=== PATIENT | female | born 1960 | race Caucasian/White ===

== ENCOUNTER → 2017-07-20 | Outpatient (CLI) | payer BC | END | disposition home or self-care (01) | LOC: RAH 14:06 | PROVIDERS: ATTEND Family Medicine | DX: M48.061 Spinal stenosis, lumbar region without neurogenic claudication (principal) | CPT/HCPCS: 72148 ==

== ENCOUNTER → 2018-09-20 | Outpatient (CLI) | payer BC | END | disposition home or self-care (01) | LOC: RAH 14:45 | PROVIDERS: ATTEND Physical Medicine & Rehabilitation | DX: M47.816 Spondylosis without myelopathy or radiculopathy, lumbar region (principal); M48.061 Spinal stenosis, lumbar region without neurogenic claudication; M71.38 Other bursal cyst, other site | CPT/HCPCS: 72148 ==

== ENCOUNTER → 2018-12-15 | Outpatient (CLI) | payer BC | END | disposition home or self-care (01) | LOC: RAH 13:30 | PROVIDERS: ATTEND Family Medicine | DX: Z12.31 Encounter for screening mammogram for malignant neoplasm of breast (principal) | CPT/HCPCS: 77067 ==

== ENCOUNTER → 2021-11-06 | Outpatient (CLI) | payer BC | END | disposition home or self-care (01) | LOC: RAH 13:46 | PROVIDERS: ATTEND Family Medicine | DX: N64.4 Mastodynia (principal); R92.8 Other abnormal and inconclusive findings on diagnostic imaging of breast | CPT/HCPCS: 77066 ==

== ENCOUNTER → 2022-11-09 | Outpatient (CLI) | payer BC | END | disposition home or self-care (01) | LOC: RAH 10:14 | PROVIDERS: ATTEND Family Medicine | DX: N63.11 Unspecified lump in the right breast, upper outer quadrant (principal); N64.4 Mastodynia; R92.2 Inconclusive mammogram | CPT/HCPCS: 76641; 77066 ==

== ENCOUNTER → 2022-12-06 | Outpatient (CLI) | payer BC ==
[2022-12-06 08:48] LABS: INR < 0.93 (0.85-1.15); PROTHROMBIN TIME 10.8 SEC (9.6-11.6)
[2022-12-06 08:50] LABS: PARTIAL THROMBOPLASTIN TIME 33.5 SEC (26.3-35.5)
== END | disposition home or self-care (01) ==
LOC: RAH 08:10
PROVIDERS: ATTEND Family Medicine
DX: C50.411 Malignant neoplasm of upper-outer quadrant of right female breast (principal); F13.20 Sedative, hypnotic or anxiolytic dependence, uncomplicated; F41.9 Anxiety disorder, unspecified; J06.9 Acute upper respiratory infection, unspecified; F32.A Depression, unspecified; F32.1 Major depressive disorder, single episode, moderate; Z79.01 Long term (current) use of anticoagulants; Z90.710 Acquired absence of both cervix and uterus; Z98.890 Other specified postprocedural states; Z87.891 Personal history of nicotine dependence; Z82.49 Family history of ischemic heart disease and other diseases of the circulatory system
CPT/HCPCS: 19083; 85610; 85730; 36415; 88305; A4215 ×2; A4648

== ENCOUNTER → 2024-06-14 | Outpatient (CLI) | payer BC ==
[~2024-06-14] MED LIST: GADOTERATE MEGLUMINE 10 MMOL/20 ML VIAL IV ONE
--- NOTE | 2024-06-14 16:38 | HMCIMG ---
MR SPINAL CANAL, CERV W/WO CON HISTORY: Radiculopathy COMPARISON: None TECHNIQUE: MRI of the cervical spine was performed utilizing multiple pulse sequences in axial, coronal and sagittal plane. Patient was given 70 cc of contrast. through intravenous route. FINDINGS: No abnormal signal intensity is seen of the visualized bony structure. No loss of vertebral height is seen. There is straightening of normal lordotic cervical curvature which may be related to muscle spasm or positioning. Degenerative disc signals are present at all cervical spine levels. Cerebellar tonsils are in normal position. Abnormal signal intensity is seen throughout the cervical cord at C4, C5, C6 and C7 levels may be related to myelopathy versus myelitis but other possibility not excluded. At the C3-4 level, there is spondylotic disc causing anterior CSF space effacement with bilateral lateral recess stenosis and bilateral neural foraminal stenosis. The central canal measures approximately 5.8 mm in its anterior posterior dimension. At the C4-5 level, there is spondylotic disc with central disc herniation causing anterior CSF space effacement with bilateral lateral recess stenosis and bilateral neural foraminal stenosis. The central canal measures approximately 4.5 mm in its anterior posterior dimension. At the C5-6 level, there is spondylotic disc causing anterior CSF space effacement with bilateral lateral recess stenosis and bilateral neural foraminal stenosis. The central canal measures approximately 3.6 mm in its anterior posterior dimension. At the C6-7 level, there is spondylotic disc causing anterior CSF space effacement with bilateral lateral recess stenosis and bilateral neural foraminal stenosis. The central canal measures approximately 4.7 mm in its anterior posterior dimension. IMPRESSION: 1. DJD. Cervical spine spondylosis and central canal narrowing. Abnormal signal intensity is seen within cervical cord C4, C5, C6 and C7 levels may be related to myelomalacia versus cord contusion versus myelitis. Other possibilities cannot be excluded. No abnormal enhancement is seen at this time.
== END | disposition home or self-care (01) ==
LOC: RAH 14:04
PROVIDERS: ATTEND Internal Medicine Hematology & Oncology
DX: M47.22 Other spondylosis with radiculopathy, cervical region (principal); M48.02 Spinal stenosis, cervical region; C77.3 Secondary and unspecified malignant neoplasm of axilla and upper limb lymph nodes; C50.811 Malignant neoplasm of overlapping sites of right female breast
CPT/HCPCS: 72156; A9575

== ENCOUNTER 2024-07-10 12:37 | Inpatient (IN) | payer BC ==
[~2024-07-10] VITALS: Ht 172.7 cm; Wt 86.6 kg
[2024-07-10 13:07] LABS: BASOPHILS # (AUTO) 0.02 K/uL (0.00-0.20); BASOPHILS % (AUTO) 0.4 % (0.0-5.0); EOSINOPHILS # (AUTO) 0.05 K/uL (0.00-0.70); HEMATOCRIT 35.6 % (36-48); IMMATURE GRANULOCYTE ABSOLUTE 0.02 K/uL (0-1); LYMPHOCYTES # (AUTO) 0.7 K/uL (1.0-4.8); LYMPHOCYTES % (AUTO) 13.9 % (21.0-51.0); MEAN CORPUSCULAR HEMOGLOBIN 31.8 pg (27.0-33.0); MEAN CORPUSCULAR HGB CONC 32.9 g/dL (32.0-36.0); MEAN CORPUSCULAR VOLUME 96.7 fL (79-99); MONOCYTES # (AUTO) 0.5 K/uL (0.1-1.0); MONOCYTES % (AUTO) 10.5 % (3.0-13.0); NEUTROPHILS # (AUTO) 3.7 K/uL (1.8-7.7); NEUTROPHILS % (AUTO) 73.8 % (40.0-77.0); PLATELET COUNT (AUTO) 213 K/uL (130-400); RED BLOOD CELL COUNT(AUTO) 3.68 MIL/uL (4.00-5.50); RED CELL DISTRIBUTION WIDTH 12.4 % (11.0-15.5)
--- NOTE | 2024-07-10 13:12 | ERN ---
ED Note History of Present Illness Stated Complaint: RT HAND SWELLING AND PAIN Chief Complaint: Hand Problem/Injury Time Seen by MD: 12:40 Time Seen by Midlevel: 12:40 Dictation: 63-year-old female presents to the ED for evaluation of right hand pain and swelling she was had with a past five days. Patient was born possible insect bite on . Patient reports she was started with draining this morning. Denies fear, and she was pain does report history of breast cancer with mastectomy of the right and removal of lymph nodes last year. Patient was in remission at this time Allergies: Coded Allergies: ketorolac (Unverified Allergy, Unknown, 07/10/24) sulfamethoxazole (Unverified Allergy, Unknown, 07/10/24) trimethoprim (Unverified Allergy, Unknown, 07/10/24) Home Meds Reported Medications Albuterol Sulfate (Ventolin Hfa) 90 Mcg Hfa.aer.ad, 2 PUFF IH Q4HPRN PRN for wheezing for 30 Days, #18 GM 0 Refills 07/10/24 Oxycodone HCl/Acetaminophen (Endocet 5-325 Tablet) 5 Mg-325 Mg Tablet, 1 TAB PO Q4HPRN PRN for PAIN LEVEL 1 TO 5 for 30 Days, #90 TAB 0 Refills //25 Bisacodyl (Dulcolax) 5 Mg Tablet.dr, 10 MG PO HS, TAB 5/6/25 Loratadine (Claritin) 10 Mg Tab, 10 MG PO HS, TAB 5/6/25 Sennosides (Senokot) 8.6 Mg Tablet, 17.2 MG PO HS, TAB 5//25 Aspirin (Aspirin EC) 81 Mg Tablet.dr, 81 MG PO HS, TAB 5/6/25 Famotidine (Famotidine) 40 Mg Tablet, 40 MG PO HS, TAB 5/6/25 Alprazolam (Alprazolam) 1 Mg Tablet, 1 MG PO TIDP PRN for ANXIETY, TAB 5/6/25 Atorvastatin Calcium (LIPITOR) 10 Mg Tab, 10 MG PO HS, TAB 5/6/25 Citalopram Hydrobromide (Citalopram HBr) 40 Mg Tablet, 40 MG PO HS, TAB 5/6/25 Furosemide (Furosemide) 20 Mg Tablet, 20 MG PO HS, TAB 5/6/25 Hydrochlorothiazide (Hydrochlorothiazide) 12.5 Mg Tablet, 12.5 MG PO HS, TAB 07/10/24 Clopidogrel Bisulfate (Clopidogrel) 75 Mg Tablet, 75 MG PO HS, TAB 07/10/24 Pregabalin (Pregabalin) 75 Mg Capsule, 75 MG PO BID, CAP 07/10/24 Discontinued Reported Medications Bisacodyl (Bisacodyl) 5 Mg Tablet.dr, 5 MG PO HS, TAB 07/10/24 Past Medical History Past Medical History: Arthritis, CAD, Cancer Surgical History: Other Surgical History Other: RT MASECTOMY RN Note Reviewed/Agreed w/PFSH: Yes Review of System Dictation CONSTITUTIONAL: Negative except for HPI HEAD/FACE: Negative except for HPI EENT: Negative except for HPI RESPIRATORY: Negative except for HPI GASTROINTESTINAL/ABDOMINAL: Negative except for HPI GENITOURINARY: Negative except for HPI MUSCULOSKELETAL: Negative except for HPI INTEGUMENTARY: Negative except for HPI NEUROLOGICAL/PSYCH: Negative except for HPI HEMATOLOGIC/LYMPHATIC: Negative except for HPI All Systems Negative, Except as noted above. 13 point review of systems assessed and all negative except for above. Review of Systems: was completed Initial Vital Sign VS Vital Signs Date Time Temp Pulse Resp B/P (MAP) Pulse Ox O2 Delivery O2 Flow Rate FiO2 07/10/24 12:40 98.4 114 20 115/77 99 0 07/10/24 13:05 Room Air* 21 Physical Exam Dictation Vital Signs reviewed General Appearance: Alert, oriented x 3, no acute distress, well developed, nourished. Head and Face: non-traumatic. Eyes: PERRL, pink conjunctivas, eyelid no trauma, anterior chamber with arcus senilis. Ears: Pinnas intact and no signs of trauma or erythema ear canals clear and no discharge TM no erythema Nose: No discharge, no bleeding. Oropharynx: Mouth normal, tongue pink, pharynx clear,no erythema, tonsils no exudates, no abscesses noted, mucous membrane moist Neck: Supple, non-tender, no thyromegaly, no masses, no JVD, no bruits Breast:Deferred Chest:No tenderness, no crepitus, no paradoxical movement, no retractions Lungs:Clear, well-ventilated, symmetric, no rales, no wheezing, no rhonchi, no stridor, good breath sounds bilaterally Heart: Regular rate, regular rhythm, no murmur, no gallops Vascular: no peripheral edema, Abdomen: Soft, positive bowel sounds, nondistended, no guarding, nontender, no rebound, no masses no hepatomegaly, no splenomegaly, no Heaton's sign, no hernias. Rectal: Deferred Genital: Deferred Neurological: Normal speech, motor function intact, sensory function intact Musculoskeletal: Neck nontender, full range of motion, back nontender, full range of motion, Extremities: nontender, full range of motion Skin: Color pink, dry, no turgor, no rash, no lacerations, no abrasions, no contusions. large area of right hand with induration, fluctuance and surrounding erythema consistent with cellulitis Lymphatic: Deferred Results (Laboratory/Radiology) Laboratory/Radiology Labs Reviewed?: Yes ED Course ED Course 1351 Spoke with Monique Mayer, YAYA for Dr. Young who agrees with plan for admission Medical Decision Making MDM MDM: Differential diagnosis: Cellulitis, abscess, immunocompromise, osteomyelitis, insect bite Rationale: Tests considered and ordered secondary to shared decision making include: Previous outside records reviewed: Old ER visits. Risk of complication and/or morbidity or mortality of patient management: None Medications-Per medication reconciliation Need for hospitalization: Patient does meet criteria for hospitalization. Need for emergency major/minor surgery: No There are no social concerns with this patient. Prescription drug management Prescriptions will include symptomatic care Patient's prior external medical records from other ER visits were reviewed by me as indicated. Prior testing and results from previous visits were reviewed. Prior tests were taken into account with medical decision making and resource utilization, independent historian/historians were used to obtain complete medical history. I independently interpreted the test that were performed, results were reviewed by me and considered findings on radiology if ordered. Medical management and examination interpretation discussions were had by me with other qualified healthcare professionals as indicated for the patient's care. Patient is a vancomycin and Rocephin for infection. Blood cultures and wound culture was obtained prior. Patient will be admitted for IV antibiotics due to immunocompromise state previous breast cancer. DX & DISP Disposition: Inpatient Decision to Admit Date: July 10, 2024 Decision to Admit Time: 12:52 Departure Impression: Primary Impression: Cellulitis Condition: Stable Referrals: HUE MARROQUIN MD (PCP) I have reviewed the case, and I agree with, Diagnosis and Plan I performed a substantive portion of the visit. I have reviewed and personally made and approve the management plan that is documented in the notes by myself with YAYA/resident. I acknowledged full responsibility for the patient's management plan. 63-year-old female right-hand cellulitis possibly an insect bite. No sepsis. Possibly an abscess. Started on antibiotics in the ER. We will admit for surgical/orthopedic consultation. JUAN A APODACA July 10, 2024 13:12 RIGOBERTO SALAZAR DO July 16, 2024 07:48
[2024-07-10 13:16] LABS: CREATININE 1.1 mg/dL (0.5-1.0); POTASSIUM 3.4 mmol/L (3.5-5.1)
[2024-07-10 13:20] LABS: BILIRUBIN,TOTAL 0.3 mg/dL (0.2-1.0); TOTAL PROTEIN, SERUM 6.8 g/dL (6.0-8.3)
[2024-07-10] MEDS ORDERED: VANCOMYCIN HCL 1.5 GM/250 ML BAG IV ONE (13:30)
[2024-07-10] MEDS: ondanSETRON 4MG INJ IVP STA (13:37)
[2024-07-10] MEDS: cefTRIAXone 1G VIAL IVPB STA (13:38)
[2024-07-10] MEDS: morPHINE 2 MG SYG IVP STA (13:38)
[2024-07-10] MEDS ORDERED: LACTULOSE 20 GM/30 ML UDCUP PO PRN (14:00)
[2024-07-10] MEDS ORDERED: MAGNESIUM 2GM PREMIX 50ML 50 ML IV PRN (14:00)
[2024-07-10] MEDS ORDERED: PoTASSium chl 10% ELIXIR 20MEQ 20 MEQ/15 ML UDCUP PO PRN (14:00)
[2024-07-10] MEDS ORDERED: ondanSETRON 4MG INJ IVP PRN (14:00)
[2024-07-10] MEDS ORDERED: hydrALAZine 20MG/ML VIAL IV PRN (14:00)
[2024-07-10] MEDS ORDERED: PoTASSium chloRIDE 20MEQ/100ML 100 ML IV PRN (14:00)
[2024-07-10] MEDS ORDERED: acetaMINOPHEN 325 MG TAB PO PRN (14:00)
[2024-07-10] MEDS: 0.9%NACL 1000ML 1,000 ML IV ONE (14:03)
--- NOTE | 2024-07-10 14:05 | HP ---
[facility] HISTORY AND PHYSICAL Date of Service: July 10, 2024 Time of Service: 14:01 HISTORY OF PRESENT ILLNESS: [ ] Admission Date 07/10/2024 PCP: Dimitry Torres MD This is a 63-year-old female that presents in ED with chief complaints of right hand forearm swelling. Reports four days ago she was watering her plants and and she believes that she was bitten by a insect. Right away she started with fevers and chills for24 hours then subsided. She was concerned today given to having redness and severe pain to right hand up to her axillary region of her right arm and drainage from infected right hand. She denies any fevers in the past24 hours. Or chills. She decided to come to ED for further evaluation and treatment. she reports having pets at home ( dogs) all vaccinated and treated for fleas and ticks. She follows oncologists Dr Salas. Patient was seen in ED two patient is fully awake alert oriented x3. brother at bedside. Right hand swollen with erythema on top of hand and with large area with drainage. She reports redness was up to her forearm: Patient is able to move arm and fingers, pulse are present. REVIEW OF SYSTEMS A14 point ROS was obtained all relevant positive for documented otherwise ROS negative PAST MEDICAL HISTORY: [ ] CAD breast cancer PAST SURGICAL HISTORY: [ ] Right mastectomy with lymph node removal Cardiac stent x4 PAST SOCIAL HISTORY: [ ] Former smoker quit February 2024 Denies alcohol use. FAMILY HISTORY: [ ] Noncontributory Coded Allergies: ketorolac (Unverified Allergy, Unknown, 07/10/24) sulfamethoxazole (Unverified Allergy, Unknown, 07/10/24) trimethoprim (Unverified Allergy, Unknown, 07/10/24) PHYSICAL EXAM GENERAL APPEARANCE: The patient is awake, alert, and oriented, in no acute cardiopulmonary distress. NEUROLOGICAL: Cranial nerves II-XII grossly intact. Motor is 5/5 in bilateral upper and lower extremities proximal to distal. No sensory deficits. HEENT: Face is symmetric. Pupils are equal and reactive. Extraocular movements are intact. NECK: Supple. No JVD. No thyromegaly. No submental, submandibular, pre- /postauricular, occipital or supraclavicular lymphadenopathy. CHEST: Normal chest expansion. No Telemetry. LUNGS: Absence of any rales, rhonchi or any wheezing. CARDIOVASCULAR: Regular. S1 and S2 normal. No appreciable rubs, murmurs or gallops. ABDOMEN: Soft, nontender, and nondistended. There is no rebound, voluntary guarding, or rigidity. : Deferred. No Juarez. EXTREMITIES: Non-edematous and not cyanotic. No clubbing. Good capillary refill. right hand erythema and large area with drainage SKIN: No skin breakdown. Vital Sign (Last 24 Hours) 07/10/24 13:05 Temp 98.4 Pulse 92 Resp 15 B/P (MAP) 119/77 Pulse Ox 95 O2 Delivery Room Air* O2 Flow Rate 0 FiO2 21 LABS: Laboratory: Test 07/10/24 12:58 Range/Units White Blood Count 5.0 4.8-10.8 K/uL Red Blood Count 3.68 L 4.00-5.50 MIL/uL Hemoglobin 11.7 L 12.0-16.0 g/dL Hematocrit 35.6 L 36-48 % Mean Corpuscular Volume 96.7 79-99 fL Mean Corpuscular Hemoglobin 31.8 27.0-33.0 pg Mean Corpuscular Hemoglobin Concent 32.9 32.0-36.0 g/dL Red Cell Distribution Width 12.4 11.0-15.5 % Platelet Count 213 130-400 K/uL Mean Platelet Volume 9.0 7.5-10.5 fL Immature Granulocyte % (Auto) 0.4 0-1 % Neutrophils (%) (Auto) 73.8 40.0-77.0 % Lymphocytes (%) (Auto) 13.9 L 21.0-51.0 % Monocytes (%) (Auto) 10.5 3.0-13.0 % Eosinophils (%) (Auto) 1.0 0.0-8.0 % Basophils (%) (Auto) 0.4 0.0-5.0 % Neutrophils # (Auto) 3.7 1.8-7.7 K/uL Lymphocytes # (Auto) 0.7 L 1.0-4.8 K/uL Monocytes # (Auto) 0.5 0.1-1.0 K/uL Eosinophils # (Auto) 0.05 0.00-0.70 K/uL Basophils # (Auto) 0.02 0.00-0.20 K/uL Absolute Immature Granulocyte (auto 0.02 0-1 K/uL Nucleated Red Blood Cells 0.0 0.0-0.19 % Sodium Level 141 136-145 mmol/L Potassium Level 3.4 L 3.5-5.1 mmol/L Chloride Level 101 101-111 mmol/L Carbon Dioxide Level 35 H 21-32 mmol/L Blood Urea Nitrogen 12 7-18 mg/dL Creatinine 1.1 H 0.5-1.0 mg/dL Glomerular Filtration Rate Calc 56 >90 mL/min Random Glucose 96 70-105 mg/dL Lactic Acid Level 2.4 0.8-2.5 mmol/L Total Calcium 8.8 8.5-10.1 mg/dL Total Bilirubin 0.3 0.2-1.0 mg/dL Aspartate Amino Transf (AST/SGOT) 25 10-37 U/L Alanine Aminotransferase (ALT/SGPT) 29 12-78 U/L Alkaline Phosphatase 113 50-136 U/L Total Protein 6.8 6.0-8.3 g/dL Albumin 3.0 L 3.5-5.0 g/dL Current Medications Medications (Trade) Dose Ordered Sig/Cindy Route PRN Reason Start Time Stop Time Status Last Admin Dose Admin Ceftriaxone Sodium (ROCEphine 1G INJ) 1 gm ONCE STAT IVPB 07/10/24 13:07 07/10/24 13:09 DC 07/10/24 13:38 1 GM Morphine Sulfate (morPHINE 2MG SYG) 2 mg ONCE STAT IVP 07/10/24 13:28 07/10/24 13:30 DC 07/10/24 13:38 2 MG Ondansetron HCl (zoFRAN 4MG INJ) 4 mg ONCE STAT IVP 07/10/24 13:28 07/10/24 13:30 DC 07/10/24 13:37 4 MG DIAGNOSTICS / RADIOLOGY: [ ] ASSESSMENT: Right hand cellulitis with abscess POA right had soft tissue infection POA Electrolyte derangement Hypokalemia POA WM ATN POA Moderate protein calorie malnutrition POA PLAN: [ ] Admit: Medical-surgical floor condition: Fair Status: Full code IVF: NS at 75 mL/hour times one day. Consultants; ID for abt's stewardship, General surgeon Antibiotics: Cefepime1 g every 12 hours doxycycline 100 mg IV b.i.d. Tetanus IM ordered. Test:blood cultures, wound cultures gram stain xray right hand pending results. Procedure: possible I/D waiting for general surgeon Labs cbc, cmp, mag+ Replace electrolytes as needed as per protocol to keep potassium above 4.0 magnesium 2.0. Home medications pending to be reviewed by RN nurse. PRN: MEDICATIONS Tylenol 650 mg po every 4 hrs for fever Zofran 4 mg IV every 6 hrs for n/v Hydralazine 5 mg IV every 4 hrs systolic pressure > 160 bowel regiment: lactulose 20 gm PO BID PRN constipation Pain management: Tylenol No. 3 as needed for severe pain. Supportive measures: DVT ppx, GI ppx all questions answered time spent: > 35 min Supervising MD: Dr. Young c/d This document was generated in part using voice recognition software, occasional wrong word or sound alike substitutions may have occurred due to the inherent limitations of voice recognition software. Read the chart carefully and recog nize using context, where the substitutions have occurred. Although every effort was made to edit the content, steel crane operator and typing errors may occur ADVANCED CARE PLANNING 1. Which of the following were discussed? Hospice Care - Yes / No Therapeutic options - Yes / No Advance Directives - Yes / No Other discussions - 2. Discussed with who? 3. Voluntary nature of this service was explained to the patient? Yes / No 4. Amount of time spent - 5. Reviewed by Physician? (if this service was performed by NPP) Yes / No ATTESTATION BY PHYSICIAN I have seen and examined the patient. I reviewed the documentation, medical decision making, and treatment plan as noted by the mid-level provider above. I agree with the findings and plan of care. ART YOUNG MD, ELIZABETH NP July 10, 2024 14:05
[2024-07-10] MEDS ORDERED: acetaMINOPHEN WITH coDEINE 1 TAB TAB PO PRN (14:30)
[2024-07-10] MEDS: VANCOMYCIN 1.5 GM/250 ML BAG 250 ML IV ONE (14:48)
[2024-07-10] MEDS: 0.9%NACL 1000ML 1,000 ML IV SCH (14:48)
[2024-07-10] MEDS: teTANUS/diphthERIA TOXOID [ADULT] 0.5 ML VIAL IM ONE (14:53)
--- NOTE | 2024-07-10 15:13 | NUR ---
DCP: HOME Pt is under care of Dr Santana and MD Moon for her cancer. Pt states her last treatment was Dec 2023 and she is "cancer free". Pt lives with her Neil Christopher [phone] who is currently in [place]. Pt's brother Ede Daugherty [phone] lives near by and assists pt as needed. Pt states she is independent of all her ADLS, uses no DME or in home care services at this time. PCP is Yessy Moraes and uses [facility] for rx. Has ppt with Dr Santana tomorrow and MD Moon on 07/16.MONA Gill made aware of Dr Santana appt. Addendum: 07/10/24 at 1514 by IVAN PANTOJA SS Amended: Links added.
--- NOTE | 2024-07-10 15:58 | HMCIMG ---
Exam Type: HAND 3+VWS RT Clinical Information: abscess, cellulitis Comparison: None Findings: The bone examination is unremarkable. No fractures or dislocations are seen. No radiopaque foreign bodies are noted. Dorsal soft tissue swelling. IMPRESSION: Normal bony examination.
[2024-07-10] MEDS ORDERED: FAMO40TA7 PO (16:16)
[2024-07-10] MEDS ORDERED: CLOP75TA32 PO (16:16)
[2024-07-10] MEDS ORDERED: BISA-151 PO (16:16)
[2024-07-10] MEDS ORDERED: PREG75CA76 PO (16:16)
[2024-07-10] MEDS ORDERED: FURO20TA4 PO (16:16)
[2024-07-10] MEDS ORDERED: ALPR1TAB7 PO (16:16)
[2024-07-10] MEDS ORDERED: CITA-108 PO (16:16)
[2024-07-10] MEDS ORDERED: HYDR12.54 PO (16:16)
[2024-07-10] MEDS ORDERED: ATOR10 PO (16:16)
[2024-07-10] MEDS ORDERED: ASPI-1443 PO (16:25)
[2024-07-10] MEDS ORDERED: LORA10TA7 PO (16:25)
[2024-07-10] MEDS ORDERED: SENN8.6T90 PO (16:25)
[2024-07-10] MEDS ORDERED: BISA-72 PO (16:25)
--- NOTE | 2024-07-10 16:25 | NUR ---
MED REC PATIENT STATES SHE TAKES ALL HER HOME MEDS AT NIGHT BEFORE BED, ONLY ONE SHE TAKES TWICE A DAY IS THE PREGABLIN
[2024-07-10] MEDS: DOXYCYCLINE 100MG+NS 250ML 250 ML IV SCH (17:41)
--- NOTE | 2024-07-10 18:33 | NUR ---
CALLED AND SPOKE TO DR. CHO OVER PHONE IN REGARDS TO NEW CONSULT, STATED "I WILL SEE PATIENT TOMORROW"
--- NOTE | 2024-07-10 19:37 | NUR ---
PT HAS RESTRICTED RIGHT ARM S/P MASTECTOMY
[2024-07-10 19:45] LABS: APPEARANCE,URINE CLEAR (CLEAR); BILIRUBIN,URINE NEGATIVE (NEGATIVE); COLOR,URINE LIGHT-YELLOW (YELLOW); GLUCOSE, URINE (UA) NEGATIVE (NEGATIVE); KETONES,URINE NEGATIVE (NEGATIVE); LEUKOCYTE ESTERASE ,URINE 25 Leu/uL (NEGATIVE); NITRATE,URINE NEGATIVE (NEGATIVE); OCCULT BLOOD,URINE NEGATIVE (NEGATIVE); PROTEIN,URINE NEGATIVE (NEGATIVE); UROBILINOGEN,URINE 0.2 mg/dL (0.2-1.0)
[2024-07-10 19:49] LABS: MUCUS,URINE RARE LPF (None Seen); SQUAMOUS EPITHELIAL CELL,UR RARE /HPF (0-2)
[2024-07-10] MEDS: FAMOTIDINE 20MG VIAL IV SCH (20:00)
[2024-07-10 22:00] VITALS: BP 134/79; PULSE 94; RESP 20; TEMP 97.9
[2024-07-10] MEDS ORDERED: ALBU18HF7 IH (22:45)
[2024-07-10] MEDS ORDERED: OXYC-26 PO (22:45)
[2024-07-11] MEDS: ceFEPime HCL 1 GM VIAL IVPB SCH (00:57)
[2024-07-11 03:54] VITALS: BP 101/59; PULSE 72; RESP 19; TEMP 97.8
[2024-07-11 05:34] LABS: BASOPHILS # (AUTO) 0.02 K/uL (0.00-0.20); BASOPHILS % (AUTO) 0.6 % (0.0-5.0); EOSINOPHILS % (AUTO) 3.2 % (0.0-8.0); HEMATOCRIT 31.5 % (36-48); IMMATURE GRANULOCYTE ABSOLUTE 0.02 K/uL (0-1); LYMPHOCYTES # (AUTO) 0.6 K/uL (1.0-4.8); LYMPHOCYTES % (AUTO) 19.1 % (21.0-51.0); MEAN CORPUSCULAR HEMOGLOBIN 32.1 pg (27.0-33.0); MEAN CORPUSCULAR HGB CONC 32.4 g/dL (32.0-36.0); MEAN CORPUSCULAR VOLUME 99.1 fL (79-99); MONOCYTES # (AUTO) 0.4 K/uL (0.1-1.0); MONOCYTES % (AUTO) 11.5 % (3.0-13.0); PLATELET COUNT (AUTO) 194 K/uL (130-400); RED BLOOD CELL COUNT(AUTO) 3.18 MIL/uL (4.00-5.50); RED CELL DISTRIBUTION WIDTH 12.3 % (11.0-15.5); WHITE BLOOD COUNT (AUTO) 3.1 K/uL (4.8-10.8)
[2024-07-11] MEDS: DOXYCYCLINE 100MG+NS 250ML 250 ML IV SCH (05:50)
[2024-07-11 06:21] LABS: ALBUMIN 2.3 g/dL (3.5-5.0); BILIRUBIN,TOTAL 0.3 mg/dL (0.2-1.0); CREATININE 0.9 mg/dL (0.5-1.0); MAGNESIUM 2.2 mg/dL (1.80-2.40); POTASSIUM 3.3 mmol/L (3.5-5.1); TOTAL PROTEIN, SERUM 5.7 g/dL (6.0-8.3)
[2024-07-11 08:00] VITALS: BP 98/58; PULSE 86; RESP 18; TEMP 97.6; O2SAT 95
--- NOTE | 2024-07-11 11:08 | PN ---
[facility] PROGRESS NOTE Date of Service: July 11, 2024 Time of Service: 10:57 SUBJECTIVE: [ ] Admission Date 07/10/2024 PCP: Dimitry Torres MD This is a 63-year-old female that presents in ED with chief complaints of right hand forearm swelling. Reports four days ago she was watering her plants and and she believes that she was bitten by a insect. Right away she started with fevers and chills for24 hours then subsided. She was concerned today given to having redness and severe pain to right hand up to her axillary region of her right arm and drainage from infected right hand. She denies any fevers in the past24 hours. Or chills. She decided to come to ED for further evaluation and treatment. she reports having pets at home ( dogs) all vaccinated and treated for fleas and ticks. She follows oncologists Dr Salas cancer free; right breast cancer: mastectomy and lymph removal. 07/11/24 patient is lying in bed no fevers reported overnight. Patient had continues to be swollen with redness tender to touch. We will waiting for surgeon for possible I and D. ID on board continue with broad-spectrum antibiotics. Denied chest pain or shortness for breath. REVIEW OF SYSTEMS A14 point ROS was obtained all relevant positive for documented otherwise ROS negative PHYSICAL EXAM GENERAL APPEARANCE: The patient is awake, alert, and oriented, in no acute cardiopulmonary distress. NEUROLOGICAL: Cranial nerves II-XII grossly intact. Motor is 5/5 in bilateral upper and lower extremities proximal to distal. No sensory deficits. HEENT: Face is symmetric. Pupils are equal and reactive. Extraocular movements are intact. NECK: Supple. No JVD. No thyromegaly. No submental, submandibular, pre- /postauricular, occipital or supraclavicular lymphadenopathy. CHEST: Normal chest expansion. No Telemetry. LUNGS: Absence of any rales, rhonchi or any wheezing. CARDIOVASCULAR: Regular. S1 and S2 normal. No appreciable rubs, murmurs or gallops. ABDOMEN: Soft, nontender, and nondistended. There is no rebound, voluntary guarding, or rigidity. : Deferred. No Juarez. EXTREMITIES: Non-edematous and not cyanotic. No clubbing. Good capillary refill. right hand erythema and large area with drainage SKIN: No skin breakdown. Vital Signs (last 8hr) Date Time Temp Pulse Resp B/P (MAP) Pulse Ox O2 Delivery O2 Flow Rate FiO2 07/11/24 08:00 97.5 86 18 98/58 95 Room Air 07/11/24 03:54 97.9 72 19 101/59 97 Room Air 21 LABS: Laboratory: Test 07/11/24 04:53 07/10/24 19:24 07/10/24 16:59 Range/Units White Blood Count 3.1 #L 4.8-10.8 K/uL Red Blood Count 3.18 L 4.00-5.50 MIL/uL Hemoglobin 10.2 L 12.0-16.0 g/dL Hematocrit 31.5 L 36-48 % Mean Corpuscular Volume 99.1 H 79-99 fL Mean Corpuscular Hemoglobin 32.1 27.0-33.0 pg Mean Corpuscular Hemoglobin Concent 32.4 32.0-36.0 g/dL Red Cell Distribution Width 12.3 11.0-15.5 % Platelet Count 194 130-400 K/uL Mean Platelet Volume 9.4 7.5-10.5 fL Immature Granulocyte % (Auto) 0.6 0-1 % Neutrophils (%) (Auto) 65.0 40.0-77.0 % Lymphocytes (%) (Auto) 19.1 L 21.0-51.0 % Monocytes (%) (Auto) 11.5 3.0-13.0 % Eosinophils (%) (Auto) 3.2 0.0-8.0 % Basophils (%) (Auto) 0.6 0.0-5.0 % Neutrophils # (Auto) 2.0 1.8-7.7 K/uL Lymphocytes # (Auto) 0.6 L 1.0-4.8 K/uL Monocytes # (Auto) 0.4 0.1-1.0 K/uL Eosinophils # (Auto) 0.10 0.00-0.70 K/uL Basophils # (Auto) 0.02 0.00-0.20 K/uL Absolute Immature Granulocyte (auto 0.02 0-1 K/uL Nucleated Red Blood Cells 0.0 0.0-0.19 % Sodium Level 141 136-145 mmol/L Potassium Level 3.3 L 3.5-5.1 mmol/L Chloride Level 104 101-111 mmol/L Carbon Dioxide Level 31 21-32 mmol/L Blood Urea Nitrogen 13 7-18 mg/dL Creatinine 0.9 0.5-1.0 mg/dL Glomerular Filtration Rate Calc 71 >90 mL/min Random Glucose 94 70-105 mg/dL Total Calcium 8.5 8.5-10.1 mg/dL Magnesium Level 2.20 1.80-2.40 mg/dL Total Bilirubin 0.3 0.2-1.0 mg/dL Aspartate Amino Transf (AST/SGOT) 25 10-37 U/L Alanine Aminotransferase (ALT/SGPT) 26 12-78 U/L Alkaline Phosphatase 89 50-136 U/L Total Protein 5.7 L 6.0-8.3 g/dL Albumin 2.3 #L 3.5-5.0 g/dL Urine Color LIGHT-YELLOW YELLOW Urine Appearance CLEAR CLEAR Urine pH 6.0 5.0-8.0 Urine Specific [place] 1.011 1.001-1.031 Urine Protein NEGATIVE NEGATIVE mg/dL Urine Glucose (UA) NEGATIVE NEGATIVE mg/dL Urine Ketones NEGATIVE NEGATIVE mg/dL Urine Occult Blood NEGATIVE NEGATIVE Urine Nitrate NEGATIVE NEGATIVE Urine Bilirubin NEGATIVE NEGATIVE mg/dL Urine Urobilinogen 0.2 0.2-1.0 mg/dL Urine Leukocyte Esterase 25 H NEGATIVE Armando/uL Urine RBC 2-5 H 0-1 /HPF Urine WBC 2-5 H 0-1 /HPF Urine Squamous Epithelial Cells RARE 0-2 /HPF Urine Bacteria None None Seen /HPF Urine Hyaline Casts 2-5 H 0-1 /LPF /LPF Lactic Acid Level 1.7 0.8-2.5 mmol/L Current Medications Medications (Trade) Dose Ordered Sig/Cindy Route PRN Reason Start Time Stop Time Status Last Admin Dose Admin Acetaminophen (TYLenol 325MG TAB) 650 mg Q4H PRN PO TEMPERATURE GREATER THAN 101.5 07/10/24 14:00 08/09/24 13:59 Acetaminophen/ Codeine Phosphate (TYLenol-coDEINE TAB) 1 tab Q4H PRN PO MODERATE PAIN (4-6) 07/10/24 14:30 08/09/24 14:29 Cefepime HCl (MAXipime 1 GM vial) 1 gm Q12H IVPB 07/11/24 01:00 07/21/24 00:59 07/11/24 00:57 1 GM Ceftriaxone Sodium (ROCEphine 1G INJ) 1 gm ONCE STAT IVPB 07/10/24 13:07 07/10/24 13:09 DC 07/10/24 13:38 1 GM Doxycycline Hyclate 250 ml @ 125 mls/hr Q12H IV 07/10/24 14:00 07/10/24 17:46 DC 07/10/24 17:41 125 MLS/HR Doxycycline Hyclate 250 ml @ 125 mls/hr Q12H IV 07/11/24 06:00 07/21/24 05:59 07/11/24 05:50 125 MLS/HR Famotidine (Pepcid 20mg Vial) 20 mg BID IV 07/10/24 21:00 08/09/24 20:59 07/11/24 10:09 20 MG Hydralazine HCl (APRESOLine 20MG INJ) 5 mg Q4H PRN IV ADMINISTER FOR SBP > 160 07/10/24 14:00 08/09/24 13:59 Lactulose (Constulose 20gm/ 30ml Udcup) 20 gm BID PRN PO CONSTIPATION 07/10/24 14:00 08/09/24 13:59 Magnesium Sulfate 50 ml @ 0 mls/hr PROTOCOL PRN IV LOW MAG LEVEL 07/10/24 14:00 08/09/24 13:59 Morphine Sulfate (morPHINE 2MG SYG) 2 mg ONCE STAT IVP 07/10/24 13:28 07/10/24 13:30 DC 07/10/24 13:38 2 MG Ondansetron HCl (zoFRAN 4MG INJ) 4 mg ONCE STAT IVP 07/10/24 13:28 07/10/24 13:30 DC 07/10/24 13:37 4 MG Ondansetron HCl (zoFRAN 4MG INJ) 4 mg Q6H PRN IVP NAUSEA/VOMITING 07/10/24 14:00 08/09/24 13:59 Potassium Chloride 100 ml @ 100 mls/hr AD PRN IV POTASSIUM PROTOCOL 07/10/24 14:00 08/09/24 13:59 Potassium Chloride (K-Dur/Klor-Con 20meq) 20 meq AD PRN PO POTASSIUM PROTOCOL 07/10/24 14:00 08/09/24 13:59 Potassium Chloride (KCl 10% Elixir 20meq/15ml) 20 meq AD PRN PO POTASSIUM PROTOCOL 07/10/24 14:00 08/09/24 13:59 Sodium Chloride 1,000 ml @ 75 mls/hr [id number] IV 07/10/24 14:00 07/11/24 13:59 07/10/24 14:48 75 MLS/HR DIAGNOSTICS / RADIOLOGY: [ ] ASSESSMENT: Right hand cellulitis with abscess POA right had soft tissue infection POA Electrolyte derangement Hypokalemia POA WM ATN POA Moderate protein calorie malnutrition POA PLAN: [ ] Admit: Medical-surgical floor condition: Fair Status: Full code IVF: Heplock fluids Consultants; ID for abt's stewardship, General surgeon oncologist Antibiotics: Cefepime1 g every 12 hours doxycycline 100 mg IV b.i.d. will follow up blood cultures, wound cultures gram stain will monitor WBC's: down to 3.1 DR Salas consulted will blood cultures, wound cultures gram stain in process Procedure: possible I/D waiting for general surgeon evaluation Labs cbc, cmp, mag+ Replace electrolytes as needed as per protocol to keep potassium above 4.0 magnesium 2.0. Home medications reconciled: hold PLavix for now possible ID continue with bowel regiment. PRN Pain management continue Supportive measures: DVT ppx, GI ppx all questions answered Supervising MD: Dr. Young c/d This document was generated in part using voice recognition software, occasional wrong word or sound alike substitutions may have occurred due to the inherent limitations of voice recognition software. Read the chart carefully and recognize using context, where the substitutions have occurred. Although every effort was made to edit the content, hand cutter and typing errors may occur ATTESTATION BY PHYSICIAN I have seen and examined the patient. I reviewed the documentation, medical decision making, and treatment plan as noted by the mid-level provider above. I agree with the findings and plan of care. ART YOUNG MD, ELIZABETH NP July 11, 2024 11:08
[2024-07-11] MEDS ORDERED: oxyCODONE/aceTAMIN 5/325MG TAB PO PRN (11:30)
[2024-07-11] MEDS ORDERED: ALBUTEROL 0.083% 2.5 MG/3 ML INH IH PRN (11:30)
--- NOTE | 2024-07-11 11:47 | CONS ---
CONSULT NOTE: Consulting physician: Dr. Young Consulting service: General surgery Reason for consultation: Right hand abscess History of present illness: This is a 63-year-old female with a medical history consistent with CAD and breast cancer with right mastectomy and history of four cardiac stents that has been consulted to surgery after presenting to the hospital with concerns of right hand swelling. Patient reports working on her guardian where she may have sustained a insect/spider bite. Patient reports this happened 4-5 days prior. Patient has noticed that right-hand began to significantly swell to the point where she began to be concern for potential abscess which is why she presented to the hospital for further evaluation. On initial admission WBCs unremarkable but significant cellulitis with potential abscess noted to the dorsal aspect of her right hand. No significant drainage reported at this time. Patient is improving with her pain. Patient also reporting that cellulitis has improved since admission. Patient currently on IV fluids and IV antibiotics Medical history: See HPI Surgical history: See HPI Review of systems: General: No Fever, No Chills, No Night Sweats, No Fatigue, No Malaise, No Appetite, No Other HEENT: No Head Aches, No Visual Changes, No Eye Pain, No Ear Pain, No Dysphasia, No Sinus Congestion, No Post Nasal Drip, No Sore Throat, No Other Pulmonary: No Dyspnea, No Cough, No Pleuritic Chest Pain, No Other Cardiovascular: No: Chest Pain, Palpitations, Orthopnea, Paroxysmal No Dyspnea, Edema, Lt Headedness, Other Gastrointestinal: No: Nausea, Vomiting, Diarrhea, Constipation, Melena, Hematochezia, Other Genitourinary: No Dysuria, No Frequency, No Incontinence, No Hematuria, No Retention, No Other Musculoskeletal: No: other, neck pain, shoulder pain, arm pain, back pain, hand pain, leg pain, foot pain Skin: No Urticaria, No Rash, No Other Neurological: No: Weakness, Numbness, Incoordination, Change in speech, Confusion, Seizures, Other Physical exam: General: Awake alert and oriented Heart: Regular rate and rhythm} Lungs: Clear to auscultation no distress Abdomen: [Soft, nontender, nondistended Right hand with significant cellulitis possible fluctuance and abscess site Assessment: This is a 59-year-old female with concerns for right hand cellulitis and possible abscess Plan: At this point in time due to location of abscess recommendations will be for ortho consultation for potential incision and drainage Patient will continue with the IV fluids and IV antibiotics Warm compresses also to be applied t.i.d. Patient to be allowed diet today and made NPO at midnight in case surgical intervention to be performed later Dr. Modi to be updated in patient's status and surgical team to be updated with any further acute events NING CHAVARRIA Jr. July 11, 2024 11:47
[2024-07-11 12:00] VITALS: BP 116/63; PULSE 82; RESP 18; TEMP 97.4
[2024-07-11 16:00] VITALS: BP 123/65; PULSE 75; RESP 18; TEMP 98
[2024-07-11 20:00] VITALS: BP 108/64; PULSE 78; RESP 18; TEMP 97.9
[2024-07-11 20:05] VITALS: O2SAT 95
[2024-07-11] MEDS: SENNOSIDES 8.6 MG TABLET PO SCH (20:35)
[2024-07-11] MEDS: furoSEMIDE 20 MG TABLET PO SCH (20:35)
[2024-07-11] MEDS: pregABALin 75 MG CAPSULE PO SCH (20:36)
[2024-07-11] MEDS: LORATAdine 10 mg 10 MG TABLET PO SCH (20:36)
[2024-07-11] MEDS: ASPIRIN 81 MG EC TAB PO SCH (20:36)
[2024-07-11] MEDS: hydroCHLOROthiazide 25 MG TABLET PO SCH (20:36)
[2024-07-11] MEDS: BisaCODYL 5 MG TABLET.DR PO SCH (20:36)
[2024-07-11] MEDS: ALPRAZolam 1 MG TAB PO PRN (20:46)
[2024-07-11] MEDS ORDERED: NON-FORMULARY MEDICATION 1 EACH (Famotidine 40 MG) PO SCH (21:00)
[2024-07-12] VITALS: BP 100/61; PULSE 92; RESP 18; TEMP 98
[2024-07-12 04:00] VITALS: BP 96/60; PULSE 80; RESP 20; TEMP 98
[2024-07-12 05:14] LABS: BASOPHILS # (AUTO) 0.01 K/uL (0.00-0.20); BASOPHILS % (AUTO) 0.3 % (0.0-5.0); EOSINOPHILS % (AUTO) 3.1 % (0.0-8.0); HEMATOCRIT 31.6 % (36-48); IMMATURE GRANULOCYTE ABSOLUTE 0.02 K/uL (0-1); LYMPHOCYTES # (AUTO) 0.8 K/uL (1.0-4.8); LYMPHOCYTES % (AUTO) 23.8 % (21.0-51.0); MEAN CORPUSCULAR HEMOGLOBIN 31.5 pg (27.0-33.0); MEAN CORPUSCULAR VOLUME 98.4 fL (79-99); MONOCYTES # (AUTO) 0.3 K/uL (0.1-1.0); MONOCYTES % (AUTO) 9.3 % (3.0-13.0); NEUTROPHILS % (AUTO) 62.9 % (40.0-77.0); PLATELET COUNT (AUTO) 186 K/uL (130-400); RED BLOOD CELL COUNT(AUTO) 3.21 MIL/uL (4.00-5.50); RED CELL DISTRIBUTION WIDTH 12.2 % (11.0-15.5); WHITE BLOOD COUNT (AUTO) 3.2 K/uL (4.8-10.8)
[2024-07-12 05:37] LABS: ALBUMIN 2.4 g/dL (3.5-5.0); BILIRUBIN,TOTAL 0.2 mg/dL (0.2-1.0); MAGNESIUM 1.9 mg/dL (1.80-2.40); POTASSIUM 3.4 mmol/L (3.5-5.1); TOTAL PROTEIN, SERUM 5.6 g/dL (6.0-8.3)
[2024-07-12] MEDS: PoTASSium chloRIDE 20MEQ ER 20 MEQ ERTAB PO PRN (07:27)
[2024-07-12 08:00] VITALS: O2SAT 96
[2024-07-12 08:06] VITALS: BP 116/65; PULSE 84; RESP 19; TEMP 98
[2024-07-12] MEDS: citaLOPram 20 MG TABLET PO SCH (09:06)
--- NOTE | 2024-07-12 10:06 | PN ---
[facility] PROGRESS NOTE Date of Service: July 12, 2024 Time of Service: 10:05 SUBJECTIVE: [ ] Admission Date 07/10/2024 PCP: Dimitry Torres MD This is a 63-year-old female that presents in ED with chief complaints of right hand forearm swelling. Reports four days ago she was watering her plants and and she believes that she was bitten by a insect. Right away she started with fevers and chills for24 hours then subsided. She was concerned today given to having redness and severe pain to right hand up to her axillary region of her right arm and drainage from infected right hand. She denies any fevers in the past24 hours. Or chills. She decided to come to ED for further evaluation and treatment. she reports having pets at home ( dogs) all vaccinated and treated for fleas and ticks. She follows oncologists Dr Salas cancer free; right breast cancer: mastectomy and lymph removal. 07/11/24 patient is lying in bed no fevers reported overnight. Patient had continues to be swollen with redness tender to touch. We will waiting for surgeon for possible I and D. ID on board continue with broad-spectrum antibiotics. Denied chest pain or shortness for breath. 07/12/24 patient is asleep awaken per verbalized stimuli. Patient reports no fever chills overnight waiting for orthopedic for possible I and D continues on broad-spectrum antibiotics being followed by ID. REVIEW OF SYSTEMS A14 point ROS was obtained all relevant positive for documented otherwise ROS negative PHYSICAL EXAM GENERAL APPEARANCE: The patient is awake, alert, and oriented, in no acute cardiopulmonary distress. NEUROLOGICAL: Cranial nerves II-XII grossly intact. Motor is 5/5 in bilateral upper and lower extremities proximal to distal. No sensory deficits. HEENT: Face is symmetric. Pupils are equal and reactive. Extraocular movements are intact. NECK: Supple. No JVD. No thyromegaly. No submental, submandibular, pre- /postauricular, occipital or supraclavicular lymphadenopathy. CHEST: Normal chest expansion. No Telemetry. LUNGS: Absence of any rales, rhonchi or any wheezing. CARDIOVASCULAR: Regular. S1 and S2 normal. No appreciable rubs, murmurs or gallops. ABDOMEN: Soft, nontender, and nondistended. There is no rebound, voluntary guarding, or rigidity. : Deferred. No Juarez. EXTREMITIES: Non-edematous and not cyanotic. No clubbing. Good capillary refill. right hand erythema and large area with drainage SKIN: No skin breakdown. Vital Signs (last 8hr) Date Time Temp Pulse Resp B/P (MAP) Pulse Ox O2 Delivery O2 Flow Rate FiO2 07/12/24 08:06 98.1 84 19 116/65 96 Room Air 07/12/24 08:00 96 Room Air* 0 21 07/12/24 04:00 98.1 80 20 96/60 97 Room Air LABS: Laboratory: Test 07/12/24 05:03 07/10/24 19:24 07/10/24 16:59 Range/Units White Blood Count 3.2 L 4.8-10.8 K/uL Red Blood Count 3.21 L 4.00-5.50 MIL/uL Hemoglobin 10.1 L 12.0-16.0 g/dL Hematocrit 31.6 L 36-48 % Mean Corpuscular Volume 98.4 79-99 fL Mean Corpuscular Hemoglobin 31.5 27.0-33.0 pg Mean Corpuscular Hemoglobin Concent 32.0 32.0-36.0 g/dL Red Cell Distribution Width 12.2 11.0-15.5 % Platelet Count 186 130-400 K/uL Mean Platelet Volume 8.9 7.5-10.5 fL Immature Granulocyte % (Auto) 0.6 0-1 % Neutrophils (%) (Auto) 62.9 40.0-77.0 % Lymphocytes (%) (Auto) 23.8 21.0-51.0 % Monocytes (%) (Auto) 9.3 3.0-13.0 % Eosinophils (%) (Auto) 3.1 0.0-8.0 % Basophils (%) (Auto) 0.3 0.0-5.0 % Neutrophils # (Auto) 2.0 1.8-7.7 K/uL Lymphocytes # (Auto) 0.8 L 1.0-4.8 K/uL Monocytes # (Auto) 0.3 0.1-1.0 K/uL Eosinophils # (Auto) 0.10 0.00-0.70 K/uL Basophils # (Auto) 0.01 0.00-0.20 K/uL Absolute Immature Granulocyte (auto 0.02 0-1 K/uL Nucleated Red Blood Cells 0.0 0.0-0.19 % Sodium Level 142 136-145 mmol/L Potassium Level 3.4 L 3.5-5.1 mmol/L Chloride Level 104 101-111 mmol/L Carbon Dioxide Level 31 21-32 mmol/L Blood Urea Nitrogen 13 7-18 mg/dL Creatinine 1.0 0.5-1.0 mg/dL Glomerular Filtration Rate Calc 63 >90 mL/min Random Glucose 92 70-105 mg/dL Total Calcium 8.8 8.5-10.1 mg/dL Magnesium Level 1.90 1.80-2.40 mg/dL Total Bilirubin 0.2 0.2-1.0 mg/dL Aspartate Amino Transf (AST/SGOT) 21 10-37 U/L Alanine Aminotransferase (ALT/SGPT) 24 12-78 U/L Alkaline Phosphatase 81 50-136 U/L Total Protein 5.6 L 6.0-8.3 g/dL Albumin 2.4 L 3.5-5.0 g/dL Urine Color LIGHT-YELLOW YELLOW Urine Appearance CLEAR CLEAR Urine pH 6.0 5.0-8.0 Urine Specific [place] 1.011 1.001-1.031 Urine Protein NEGATIVE NEGATIVE mg/dL Urine Glucose (UA) NEGATIVE NEGATIVE mg/dL Urine Ketones NEGATIVE NEGATIVE mg/dL Urine Occult Blood NEGATIVE NEGATIVE Urine Nitrate NEGATIVE NEGATIVE Urine Bilirubin NEGATIVE NEGATIVE mg/dL Urine Urobilinogen 0.2 0.2-1.0 mg/dL Urine Leukocyte Esterase 25 H NEGATIVE Armando/uL Urine RBC 2-5 H 0-1 /HPF Urine WBC 2-5 H 0-1 /HPF Urine Squamous Epithelial Cells RARE 0-2 /HPF Urine Bacteria None None Seen /HPF Urine Hyaline Casts 2-5 H 0-1 /LPF /LPF Lactic Acid Level 1.7 0.8-2.5 mmol/L Current Medications Medications (Trade) Dose Ordered Sig/Cindy Route PRN Reason Start Time Stop Time Status Last Admin Dose Admin Acetaminophen (TYLenol 325MG TAB) 650 mg Q4H PRN PO TEMPERATURE GREATER THAN 101.5 07/10/24 14:00 08/09/24 13:59 Acetaminophen/ Codeine Phosphate (TYLenol-coDEINE TAB) 1 tab Q4H PRN PO MODERATE PAIN (4-6) 07/10/24 14:30 07/11/24 11:06 DC Albuterol Sulfate (Proventil 0.083% 2.5mg/3ml) 2.5 mg Q4HPRN PRN IH wheezing 07/11/24 11:30 08/10/24 11:29 Alprazolam (XANax 1MG) 1 mg TIDP PRN PO ANXIETY 07/11/24 11:30 07/18/24 11:29 07/11/24 20:46 1 MG Aspirin (Aspirin 81mg Ec Tab) 81 mg HS PO 07/11/24 21:00 08/10/24 20:59 07/11/24 20:36 81 MG Bisacodyl (DulcoLAX 5MG TAB) 10 mg HS PO 07/11/24 21:00 08/10/24 20:59 07/11/24 20:36 10 MG Cefepime HCl (MAXipime 1 GM vial) 1 gm Q12H IVPB 07/11/24 01:00 07/21/24 00:59 07/12/24 01:17 1 GM Ceftriaxone Sodium (ROCEphine 1G INJ) 1 gm ONCE STAT IVPB 07/10/24 13:07 07/10/24 13:09 DC 07/10/24 13:38 1 GM Citalopram Hydrobromide (CeleXA 20MG TAB) 20 mg DAILY PO 07/12/24 09:00 08/11/24 08:59 07/12/24 09:06 20 MG Doxycycline Hyclate 250 ml @ 125 mls/hr Q12H IV 07/10/24 14:00 07/10/24 17:46 DC 07/10/24 17:41 125 MLS/HR Doxycycline Hyclate 250 ml @ 125 mls/hr Q12H IV 07/11/24 06:00 07/21/24 05:59 07/12/24 05:37 125 MLS/HR Famotidine (Pepcid 20mg Vial) 20 mg BID IV 07/10/24 21:00 08/09/24 20:59 07/12/24 09:06 20 MG Furosemide (LASix 20MG TAB) 20 mg HS PO 07/11/24 21:00 08/10/24 20:59 07/11/24 20:35 20 MG Hydralazine HCl (APRESOLine 20MG INJ) 5 mg Q4H PRN IV ADMINISTER FOR SBP > 160 07/10/24 14:00 08/09/24 13:59 Hydrochlorothiazide (hydroCHLOROthiazide 25MG) 12.5 mg HS PO 07/11/24 21:00 08/10/24 20:59 07/11/24 20:36 12.5 MG Lactulose (Constulose 20gm/ 30ml Udcup) 20 gm BID PRN PO CONSTIPATION 07/10/24 14:00 08/09/24 13:59 Loratadine (LORATAdine 10 mg) 10 mg HS PO 07/11/24 21:00 08/10/24 20:59 07/11/24 20:36 10 MG Magnesium Sulfate 50 ml @ 0 mls/hr PROTOCOL PRN IV LOW MAG LEVEL 07/10/24 14:00 08/09/24 13:59 Miscellaneous Medication (Famotidine ) 40 mg HS PO 07/11/24 21:00 07/11/24 11:09 DC Morphine Sulfate (morPHINE 2MG SYG) 2 mg ONCE STAT IVP 07/10/24 13:28 07/10/24 13:30 DC 07/10/24 13:38 2 MG Ondansetron HCl (zoFRAN 4MG INJ) 4 mg ONCE STAT IVP 07/10/24 13:28 07/10/24 13:30 DC 07/10/24 13:37 4 MG Ondansetron HCl (zoFRAN 4MG INJ) 4 mg Q6H PRN IVP NAUSEA/VOMITING 07/10/24 14:00 08/09/24 13:59 Oxycodone/ Acetaminophen (perCOCET) 1 tab Q4HPRN PRN PO PAIN1-5 07/11/24 11:30 07/18/24 11:29 Potassium Chloride 100 ml @ 100 mls/hr AD PRN IV POTASSIUM PROTOCOL 07/10/24 14:00 08/09/24 13:59 Potassium Chloride (K-Dur/Klor-Con 20meq) 20 meq AD PRN PO POTASSIUM PROTOCOL 07/10/24 14:00 08/09/24 13:59 07/12/24 07:27 20 MEQ Potassium Chloride (KCl 10% Elixir 20meq/15ml) 20 meq AD PRN PO POTASSIUM PROTOCOL 07/10/24 14:00 08/09/24 13:59 Pregabalin ([id number]) 75 mg BID PO 07/11/24 21:00 08/10/24 20:59 07/12/24 09:07 75 MG Sennosides (Senna) 1 tab HS PO 07/11/24 21:00 08/10/24 20:59 07/11/24 20:35 1 TAB Sodium Chloride 1,000 ml @ 75 mls/hr [id number] IV 07/10/24 14:00 07/11/24 11:06 DC 07/10/24 14:48 75 MLS/HR DIAGNOSTICS / RADIOLOGY: [ ] ASSESSMENT: Right hand cellulitis with abscess POA right had soft tissue infection POA Electrolyte derangement Hypokalemia POA WM ATN POA Moderate protein calorie malnutrition POA PLAN: [ ] Admit: Medical-surgical floor condition: Fair Status: Full code IVF: Heplock fluids Consultants; ID for abt's stewardship, General surgeon oncologist , orthopedic Antibiotics: Cefepime1 g every 12 hours doxycycline 100 mg IV b.i.d. blood cultures so far negative , wound cultures gram stain in process continue to elevated right arm warm compression application as directed by surgery IMAGING; MRA RIGHT ARM will blood cultures, wound cultures gram stain in process Procedure: possible I/D waiting for orthopedic Labs cbc, cmp, mag+ in am Replace electrolytes as needed as per protocol to keep potassium above 4.0 magnesium 2.0. Home medications reconciled: hold PLavix for now possible ID continue with bowel regiment. PRN Pain management continue Supportive measures: DVT ppx, GI ppx all questions answered Supervising MD: Dr. Young c/d This document was generated in part using voice recognition software, occasional wrong word or sound alike substitutions may have occurred due to the inherent limitations of voice recognition software. Read the chart carefully and recognize using context, where the substitutions have occurred. Although every effort was made to edit the content, rotary peel oven tender and typing errors may occur ATTESTATION BY PHYSICIAN I have seen and examined the patient. I reviewed the documentation, medical decision making, and treatment plan as noted by the mid-level provider above. I agree with the findings and plan of care. ART YOUNG MD, ELIZABETH NP July 12, 2024 10:06
--- NOTE | 2024-07-12 10:56 | CONS ---
CONSULTATION NOTE ADMITTING DIAGNOSIS: Right arm cellulitis. HISTORY OF PRESENT ILLNESS: The patient was admitted with right arm cellulitis. She was watering a plant. She got bitten by an insect. She had fever and chills. She came to the ER and was admitted by the Hospitalist Group. She is on current antibiotics. She feels much better. PAST MEDICAL HISTORY: Advanced stage breast cancer, heart disease. Otherwise, per my previous records. PAST SURGICAL HISTORY: Breast biopsy, mastectomy, heart stent, heart catheterization. MEDICATIONS: See intake sheet. ALLERGIES: TORADOL, SULFA, AND BACTRIM. FAMILY HISTORY: Negative for breast cancer. SOCIAL HISTORY: She is , lives with her . She does not smoke or drink. She is very active. REVIEW OF SYSTEMS: HEENT: Negative. CARDIOVASCULAR: Negative for chest pain, palpitations, PND. PULMONARY: No cough. GASTROINTESTINAL: Problem with abdominal pain. GENITOURINARY: Negative for hematuria or dysuria. PHYSICAL EXAMINATION: GENERAL: She is an older woman. VITAL SIGNS: Blood pressure is ____, respirations 20. She is afebrile. HEENT: Benign. CHEST: Clear and soft. INTEGUMENT: She has got what looks like a bite on the base of the thumb on the right hand with surrounding cellulitis and swelling. She has lymphedema in that arm. LABORATORY DATA: Her white count is normal. IMPRESSION: * Cellulitis right arm, most likely triggered by insect bite. * Lymphedema of the same. * Breast cancer in remission. The patient is on active treatment. PLAN: * Continue antibiotics. * Surgery has seen her for possible I and D of the hand. * It would be better if they can avoid that because this hand has lymphedema and will be extremely hard to heal. * I would recommend conservative management. She is improving dramatically with IV antibiotics and probably can go home on IV antibiotics through our clinic once cleared by the hospitalist. TID: [id number] RECEIPT: [id number]
[2024-07-12 12:00] VITALS: BP 108/67; PULSE 85; RESP 19; TEMP 97.6
--- NOTE | 2024-07-12 13:07 | CONS ---
INFECTIOUS DISEASE CONSULTATION NOTE Date of Service: July 12, 2024 Reason for Consultation: Infected Right hand. Requesting Physician: Rosa Mayer NP HISTORY OF PRESENT ILLNESS: This is a 63-year-old female patient with past medical history of Coronary artery disease, right breast cancer with mastectomy and Arthritis who presented to the emergency room for evaluation of the right hand swelling, pain and redness. Patient does not recall being bitten by an insect while watering the plants. Patient reported she drained the abscess by pocking it with a safety pin. Reported experiencing fever and chills one day at home. On the day of admission patient was afebrile, the WBC was 5.0 and the lactic acid was 2.4. Wound cultures were collected and the preliminary results is growing Gram- positive cocci in cluster, coagulase-negative Staphylococcus and Staphylococcus aureus. Patient has been started on cefepime and doxycycline IV. On examination the right hand is swollen and erythematous. No drainage observed. We will continue on the current IV antibiotics and follow up on the final culture results. REVIEW OF SYSTEMS CONSTITUTIONAL: fever and chills. HEAD/FACE: No signs of trauma. EENT: Denies eye pain, blurred vision, double vision, or light sensitivity. RESPIRATORY: Denies shortness of breath, cough, wheezing. CARDIOVASCULAR: Denies chest pain, palpitation, syncope. GASTROINTESTINAL/ABDOMINAL: Denies abdominal pain, constipation, diarrhea, nausea or vomiting GENITOURINARY: Denies dysuria or hematuria. MUSCULOSKELETAL: Denies joint pain, tenderness, or trauma. INTEGUMENTARY: Denies rash or itchiness. Redness, swelling and pain to the right hand. NEUROLOGICAL/PSYCH: Denies anxiety, depression, heat or cold intolerance. PAST MEDICAL HISTORY: Coronary artery disease. Right breast cancer. Arthritis. PAST SURGICAL HISTORY: Right mastectomy. Cardiac stents. Face lift procedure. PAST SOCIAL HISTORY: Denied current use of tobacco, alcohol or any other illicit drug. Patient quit smoking on February 2024. FAMILY HISTORY: Noncontributory. Coded Allergies: ketorolac (Unverified Allergy, Unknown, 07/10/24) sulfamethoxazole (Unverified Allergy, Unknown, 07/10/24) trimethoprim (Unverified Allergy, Unknown, 07/10/24) PHYSICAL EXAM EYES: Anicteric. Pupils equal and reactive. HENT: No oral thrush seen, moist Oral mucosa NECK: Supple, no JVD or thyromegaly. LUNGS: Good air entry. No rales, no rhonchi. CARDIOVASCULAR: S1, S2 regular. No murmur heard. ABDOMEN: Soft, non tender, bowel sounds present, no organomegaly CENTRAL NERVOUS SYSTEM: Awake, alert, oriented x 3. SKIN: No rashes, no swelling. Right hand swelling and cellulitis. LYMPHATICS: No peripheral lymphadenopathy MUSCULOSKELETAL: No joint swelling, erythema or tenderness. EXTREMITIES: No cyanosis or clubbing. Right hand abscess. BACK: No deformity, no pressure ulcer. GENITOURINARY: No dysuria or hematuria. Vital Sign (Last 24 Hours) 07/12/24 07/12/24 08:00 12:00 Temp 97.5 Pulse 85 Resp 19 B/P (MAP) 108/67 Pulse Ox 96 O2 Delivery Room Air O2 Flow Rate 0 FiO2 21 LABS: Laboratory: Test 07/12/24 05:03 07/10/24 19:24 07/10/24 16:59 Range/Units White Blood Count 3.2 L 4.8-10.8 K/uL Red Blood Count 3.21 L 4.00-5.50 MIL/uL Hemoglobin 10.1 L 12.0-16.0 g/dL Hematocrit 31.6 L 36-48 % Mean Corpuscular Volume 98.4 79-99 fL Mean Corpuscular Hemoglobin 31.5 27.0-33.0 pg Mean Corpuscular Hemoglobin Concent 32.0 32.0-36.0 g/dL Red Cell Distribution Width 12.2 11.0-15.5 % Platelet Count 186 130-400 K/uL Mean Platelet Volume 8.9 7.5-10.5 fL Immature Granulocyte % (Auto) 0.6 0-1 % Neutrophils (%) (Auto) 62.9 40.0-77.0 % Lymphocytes (%) (Auto) 23.8 21.0-51.0 % Monocytes (%) (Auto) 9.3 3.0-13.0 % Eosinophils (%) (Auto) 3.1 0.0-8.0 % Basophils (%) (Auto) 0.3 0.0-5.0 % Neutrophils # (Auto) 2.0 1.8-7.7 K/uL Lymphocytes # (Auto) 0.8 L 1.0-4.8 K/uL Monocytes # (Auto) 0.3 0.1-1.0 K/uL Eosinophils # (Auto) 0.10 0.00-0.70 K/uL Basophils # (Auto) 0.01 0.00-0.20 K/uL Absolute Immature Granulocyte (auto 0.02 0-1 K/uL Nucleated Red Blood Cells 0.0 0.0-0.19 % Sodium Level 142 136-145 mmol/L Potassium Level 3.4 L 3.5-5.1 mmol/L Chloride Level 104 101-111 mmol/L Carbon Dioxide Level 31 21-32 mmol/L Blood Urea Nitrogen 13 7-18 mg/dL Creatinine 1.0 0.5-1.0 mg/dL Glomerular Filtration Rate Calc 63 >90 mL/min Random Glucose 92 70-105 mg/dL Total Calcium 8.8 8.5-10.1 mg/dL Magnesium Level 1.90 1.80-2.40 mg/dL Total Bilirubin 0.2 0.2-1.0 mg/dL Aspartate Amino Transf (AST/SGOT) 21 10-37 U/L Alanine Aminotransferase (ALT/SGPT) 24 12-78 U/L Alkaline Phosphatase 81 50-136 U/L C-Reactive Protein, Quantitative 24.10 H 0.5-3.0 mg/L Total Protein 5.6 L 6.0-8.3 g/dL Albumin 2.4 L 3.5-5.0 g/dL Procalcitonin < 0.05 L 0.05-0.5 ng/mL Urine Color LIGHT-YELLOW YELLOW Urine Appearance CLEAR CLEAR Urine pH 6.0 5.0-8.0 Urine Specific [place] 1.011 1.001-1.031 Urine Protein NEGATIVE NEGATIVE mg/dL Urine Glucose (UA) NEGATIVE NEGATIVE mg/dL Urine Ketones NEGATIVE NEGATIVE mg/dL Urine Occult Blood NEGATIVE NEGATIVE Urine Nitrate NEGATIVE NEGATIVE Urine Bilirubin NEGATIVE NEGATIVE mg/dL Urine Urobilinogen 0.2 0.2-1.0 mg/dL Urine Leukocyte Esterase 25 H NEGATIVE Armando/uL Urine RBC 2-5 H 0-1 /HPF Urine WBC 2-5 H 0-1 /HPF Urine Squamous Epithelial Cells RARE 0-2 /HPF Urine Bacteria None None Seen /HPF Urine Hyaline Casts 2-5 H 0-1 /LPF /LPF Lactic Acid Level 1.7 0.8-2.5 mmol/L DIAGNOSTICS / RADIOLOGY: PATIENT: CANDI HUTCHINS ACCT: [id number] LOC: [place] U: [id number] AGE/SX: 63/F ROOM: [facility] RE07/10/[address]: ART CORONADO MD : 1960 BED: 1 DIS: STATUS: ADM IN TLOC: SPEC: [id number] AVA: 07/10/24 STATUS: RES REQ: [id number] RECD: 07/10/[address]: JUAN A APODACA SOURCE: DRAINAGE ENTR: 07/10/24-[address]: HUE MARROQUIN MD SPDESC: ABSCESS RIGOBERTO SALAZAR DO ORDERED: AEROBIC CULTURE COMMENTS: RIGHT HAND Procedure Result Tenisha Date-Time AEROBIC CULTURE Preliminary 07/12/24-950 [facility] DESCRIPTION: REPORT 1: 1+ SKIN LION ; STUDIES TO CONTINUE COAGULASE NEGATIVE STAPHYLOCOCCUS 1+ GRAM POSITIVE COCCI IN CLUSTERS STAPHYLOCOCCUS AUREUS SENSITIVITY TO FOLLOW Test(s) performed by: [facility] [address] [place] [address] ASSESSMENT: Right hand abscess. Right hand cellulitis. Coronary artery disease. Arthritis. PLAN: Continue cefepime 1 g IV every 12 hours as currently ordered. Continue doxycycline IV as currently ordered. We will follow up on the final culture results. Antibiotics to be adjusted when culture is updated or finalized. Orthopedic surgeon has been consulted. Thank you for allowing ID to participate in the care of this patient. This case was reviewed and discussed with my supervising physician and the above assessment and plan was formulated and agreed upon. ATTESTATION BY PHYSICIAN I have seen and examined the patient. I reviewed the documentation, medical decision making, and treatment plan as noted by the mid-level provider above. I agree with the findings and plan of care. BRYANT MUÑOZ MD, MIRTA [facility] [place] [facility] July 12, 2024 13:06
[2024-07-12 16:14] VITALS: BP 127/72; PULSE 76; RESP 19; TEMP 98
--- NOTE | 2024-07-12 17:16 | NUR ---
MRI FOLLOW UP SPOKE TO CAD TECHNICIAN RE: MRI. STATES WILL FOLLOW UP WITH ETCHED CIRCUIT PROCESSOR TO SEE IF IT CAN GET DONE TODAY. IF NOT TODAY, THEN WILL GET DONE TOMORROW MORNING.
--- NOTE | 2024-07-12 19:30 | NUR ---
AMA NOTE At around 1930, myself and day nurse Mae did bedside rounding, I went in to introduce myself to the patient. Patient voiced no needs. I explained I was going to verify orders and be back after report, Visitor at bedside stated "Are you going to do the wound care Dr. Steele ordered a while ago? Orders were given to another nurse an hour ago and dressing still has not been done." I explained to visitor and patient, yes I would verify the order and be back with supplies I needed after I finished report. Patient nodded and smiled. While I continued bedside report with Mae, visitor came out and asked Mae, "When is the dressing going to be? She is scabbing over and needs it done." Mae assured her I would be going in after we finished report. At around 8:05 patient and visitor come out with all their belongings stating they will be leaving due to nurses only going in only for 3 minutes at a time. Patient tells Mae and patient points at me, " And her with her pretty little mask on, talking to me in [place] saying she will be back after report, I don't speak [place]." I stated to patient, "Yes I will do your wound care, and I am not talking in [place]." Patient stated " You did it again, stop talking in [place]!" I explained to patient she needed to sign against medical advice and patient states 'You did it again! Stop talking in [place]! Just shut up already!" Patient stated for me to get away from her. Mae attempted to deescalate the situation and patient then refused to sign against medical advice and continued to walk away with visitor with IV in place. Charge nurse notified and commercial housekeeper.
--- NOTE | 2024-07-12 20:05 | NUR ---
The patients visitor came up to both Ousmane and SHEILA Kline and asked when we would be applying the new dressing orders to her hand as recently ordered by Dr. Steele. We advised her that Raisa would be over to her room to provider wound care once done with shift change report. A few moments later, while still giving report, both the patient and visitor came out of her room with tote in hand stating that she would be leaving the facility AMA. Patient stated "this hospital stay is causing me $1,500 a night and I don't want to stay and be ignored by nurses." Raisa attempted to reassure the patient that she had every intention on attending to her wound care upon finishing shift change report. The patient became even angrier and wanted nothing to do with Raisa and stated, "and you with your mask on I don't speak thai. Stop talking to me," although Raisa was speaking Urdu. I attempted to deescalate the situation by asking the patient to allow me to take her back to her room where I could provide her the care she was requesting but she declined and still wanted to leave. The patient was then asked to sign an AMA form which she also refused to sign and continued to walk toward the exit. We then realized that the patient had left with her IV still in place. Security was advised of situation to possibly lead the patient to staff to remove the IV prior to leaving but the patient was not found. Charge nurse made aware of situation.
--- NOTE | 2024-07-12 21:32 | CONS ---
ORTHOPEDIC CONSULTATION CHIEF COMPLAINT: Right hand pain, swelling and early drainage. HISTORY OF PRESENT ILLNESS: This 63-year-old female 6 days ago was working in her garden and is not sure if she was bit or scratched as she had no specific pain. However, she noticed redness right just proximal to the webspace between her right thumb and index finger. The next day, it got even worse. By the third day, it was quite red and she felt it was beginning to point like a pimple. So she tried to squeeze it and did get some fluid out of it. Then the next day, it was even significantly worse with redness going up her forearm. So, the patient the subsequent day came in now two days ago to the Emergency Room where she was admitted for acute cellulitis, possible abscess. They have begun her on antibiotics and I have been called for consultation. PAST MEDICAL HISTORY: Positive for metastatic breast cancer, for which she has had a mastectomy and 23 nodes removed from her right axilla and states that she is now cancer-free. However, she does have an appointment at [facility] next week. ALLERGIES: THE PATIENT IS ALLERGIC TO TORADOL AND SULFA. PHYSICAL EXAMINATION: GENERAL: This is a well-developed, adult female, appearing stated age of 63 years. She is alert, pleasant, and cooperative during the exam. She has completely lost her hair. EXTREMITIES: She is motor, sensory, intact to the radial, ulnar, and median nerves of the right upper extremity with a palpable radial pulse. She states that the redness on her forearm has gotten dramatically better with the IV antibiotics. She easily flexes and extends her thumb and index finger without any pain. Looking at the abscess, there is redness that goes up to just past her wrist on the dorsal radial side of her distal forearm. There is what appears to be a small subcuticular abscess of maybe 1 cm x 1.5 cm that feels slightly fluctuant. LABORATORY DATA: Her white count has been steadily decreasing and upon admission, it was 5.0, now down to 3.2. Her blood sugar is 94, but her CRP today is 24.1. ASSESSMENT: Probably insect bite, now with superficial abscess in the right hand. PLAN: I want him to continue IV antibiotics. I am going to ask them to put a dressing over it in case it erupts overnight. I will reassess her tomorrow and if she is still having fluctuance, we will plan to do an incision and drainage on Tuesday morning. TID: [id number] RECEIPT: [id number]
--- NOTE | 2024-07-16 16:30 | DS ---
Discharge Summary Hospital Course Summary: Admission Date 07/10/2024 PCP: Dimitry Torres MD This is a 63-year-old female that presents in ED with chief complaints of right hand forearm swelling. Reports four days ago she was watering her plants and and she believes that she was bitten by a insect. Right away she started with fevers and chills for24 hours then subsided. She was concerned today given to having redness and severe pain to right hand up to her axillary region of her right arm and drainage from infected right hand. She denies any fevers in the past24 hours. Or chills. She decided to come to ED for further evaluation and treatment. she reports having pets at home ( dogs) all vaccinated and treated for fleas and ticks. She follows oncologists Dr Salas cancer free; right breast cancer: mastectomy and lymph removal. 07/11/24 patient is lying in bed no fevers reported overnight. Patient had continues to be swollen with redness tender to touch. We will waiting for surgeon for possible I and D. ID on board continue with broad-spectrum antibiotics. Denied chest pain or shortness for breath. 07/12/24 patient is asleep awaken per verbalized stimuli. Patient reports no fever chills overnight waiting for orthopedic for possible I and D continues on broad-spectrum antibiotics being followed by ID. Patient left AMA at 10:00 p.m. Assessment/Plan: Discharged dx's Right hand cellulitis with abscess POA right had soft tissue infection POA Electrolyte derangement Hypokalemia POA WM ATN POA Moderate protein calorie malnutrition POA PLAN: [ ] Late entry date of service ADMISSION DATE: 07/10/2024 DISCHARGE DATE: Left AMA Home Medications: Reported Medications Albuterol Sulfate (Ventolin Hfa) 90 Mcg Hfa.aer.ad, 2 PUFF IH Q4HPRN PRN for wheezing for 30 Days, #18 GM 0 Refills 5/6/25 Oxycodone HCl/Acetaminophen (Endocet 5-325 Tablet) 5 Mg-325 Mg Tablet, 1 TAB PO Q4HPRN PRN for PAIN LEVEL 1 TO 5 for 30 Days, #90 TAB 0 Refills 5/6/25 Bisacodyl (Dulcolax) 5 Mg Tablet.dr, 10 MG PO HS, TAB 5/6/25 Loratadine (Claritin) 10 Mg Tab, 10 MG PO HS, TAB 07/10/24 Sennosides (Senokot) 8.6 Mg Tablet, 17.2 MG PO HS, TAB 07/10/24 Aspirin (Aspirin EC) 81 Mg Tablet.dr, 81 MG PO HS, TAB 07/10/24 Famotidine (Famotidine) 40 Mg Tablet, 40 MG PO HS, TAB 07/10/24 Alprazolam (Alprazolam) 1 Mg Tablet, 1 MG PO TIDP PRN for ANXIETY, TAB 07/10/24 Atorvastatin Calcium (LIPITOR) 10 Mg Tab, 10 MG PO HS, TAB 07/10/24 Citalopram Hydrobromide (Citalopram HBr) 40 Mg Tablet, 40 MG PO HS, TAB 07/10/24 Furosemide (Furosemide) 20 Mg Tablet, 20 MG PO HS, TAB 07/10/24 Hydrochlorothiazide (Hydrochlorothiazide) 12.5 Mg Tablet, 12.5 MG PO HS, TAB 07/10/24 Clopidogrel Bisulfate (Clopidogrel) 75 Mg Tablet, 75 MG PO HS, TAB 07/10/24 Pregabalin (Pregabalin) 75 Mg Capsule, 75 MG PO BID, CAP 07/10/24 Discontinued Reported Medications Bisacodyl (Bisacodyl) 5 Mg Tablet.dr, 5 MG PO HS, TAB 07/10/24 ATTESTATION BY PHYSICIAN I have seen and examined the patient. I reviewed the documentation, medical decision making, and treatment plan as noted by the mid-level provider above. I agree with the findings and plan of care. ART CORONADO MD, ELIZABETH NP July 16, 2024 16:30
== END 2024-07-12 20:05 | disposition left against medical advice (07) | DRG 602 ==
LOC: EDH 12:37 → EDHIP 13:54 → 4CH 21:53
PROVIDERS: ADMIT Internal Medicine; ATTEND Internal Medicine
PROC: 3E0234Z Introduction of Serum, Toxoid and Vaccine into Muscle, Percutaneous Approach (ICD-10-PCS; principal; 2024-07-10)
DX: L03.113 Cellulitis of right upper limb (principal); N17.0 Acute kidney failure with tubular necrosis; E44.0 Moderate protein-calorie malnutrition; L02.511 Cutaneous abscess of right hand; I25.10 Atherosclerotic heart disease of native coronary artery without angina pectoris; E87.6 Hypokalemia; I89.0 Lymphedema, not elsewhere classified; Z85.3 Personal history of malignant neoplasm of breast; Z90.11 Acquired absence of right breast and nipple; Z87.891 Personal history of nicotine dependence; Z95.5 Presence of coronary angioplasty implant and graft; Z88.8 Allergy status to other drugs, medicaments and biological substances; Z68.29 Body mass index [BMI] 29.0-29.9, adult; Z23 Encounter for immunization
CPT/HCPCS: 36415; 73130; 80053; 81001; 83605; 83735; 84145; 85025; 86140; 87040; 87070; 87086; 87186; 90714; 99285; G0378; J0692; J0696; J2270; J2405; J3490; J7030; J3370